=== PATIENT | female | born 1980 | race Caucasian/White ===

== ENCOUNTER 2022-03-05 15:39 | Emergency (ER) | payer BC ==
[~2022-03-05] VITALS: Ht 162.6 cm; Wt 109.8 kg
== END 2022-03-05 15:59 | disposition home or self-care (01) ==
LOC: ER 15:39
DX: U07.1 COVID-19 (principal)
CPT/HCPCS: 99282

== ENCOUNTER 2022-04-02 18:24 | Emergency (ER) | payer OTHER, BC ==
[~2022-04-02] VITALS: Ht 162.6 cm; Wt 115.7 kg
[~2022-04-02 18:24] MED LIST: EMTRICITABINE-1 EAC5 PO; ONDA4ODT MM; Prozac20 MG PO; RALT400 PO
[2022-04-03] MEDS ORDERED: RALT400 PO (20:51)
[2022-04-03] MEDS ORDERED: EMTRICITABINE-1 EAC1 PO (20:51)
== END 2022-04-02 19:26 | disposition home or self-care (01) ==
LOC: ER 18:24
DX: Z76.0 Encounter for issue of repeat prescription (principal); Z79.899 Other long term (current) drug therapy
CPT/HCPCS: A9270

== ENCOUNTER 2022-04-03 18:45 | Emergency (ER) | payer OTHER, BC ==
[~2022-04-03] VITALS: Ht 162.6 cm; Wt 109.8 kg
[2022-04-03] MEDS ORDERED: RALT400 PO (20:51)
[2022-04-03] MEDS ORDERED: EMTRICITABINE-1 EAC1 PO (20:51)
== END 2022-04-03 21:03 | disposition home or self-care (01) ==
LOC: ER 18:45
DX: Z76.0 Encounter for issue of repeat prescription (principal); F41.9 Anxiety disorder, unspecified; Z79.899 Other long term (current) drug therapy
CPT/HCPCS: A9270

== ENCOUNTER → 2024-01-28 | Outpatient (CLI) | payer BC ==
[~2024-01-28] MED LIST changes: +EMTRICITABINE-1 EAC1 PO
[2024-01-28 13:28] LABS: Follicle Stimulating Hormone 10.2 mIU/ml; Luteinizing Hormone 15.9 mIU/ml
== END | disposition home or self-care (01) ==
LOC: LAB SHORT 10:00 → LAB 10:00
PROVIDERS: Registered Nurse Community Health
DX: N95.1 Menopausal and female climacteric states (principal)
CPT/HCPCS: 83001; 83002